=== PATIENT | male | born 1950 | race Caucasian/White ===

== ENCOUNTER 2018-07-31 09:53 | Day surgery (SDC) | payer OTHER ==
[2018-07-31] MEDS: PHENYLephrine 2.5% 15 ML OPH OPER (10:37)
[2018-07-31] MEDS: MOXIFLOXACIN 0.5% 3 ML OPH OPER (10:37)
[2018-07-31] MEDS: PROPARACAINE 0.5% 15 ML OPH OPER (10:37)
[2018-07-31] MEDS: CYCLOPENTOLATE 1% 2 ML OPH OPER (10:38)
[2018-07-31] MEDS: TROPICAMIDE 1% 3 ML OPH OPER (10:39)
[2018-07-31] MEDS ORDERED: [UNRECOGNIZED DRUG - OTHER] IRR (11:00)
[2018-07-31] MEDS ORDERED: GENTAMICIN IRR (11:00)
[2018-07-31] MEDS ORDERED: BALANCED SALT IRR (11:00)
[2018-07-31] MEDS ORDERED: NEOMYC/POLYMYX/DEXAM 3.5GM OPH OINT OPER (11:00)
[2018-07-31] MEDS ORDERED: TETRACAINE 0.5% 4 ML OPH OPER (11:00)
[2018-07-31] MEDS ORDERED: EPINEPHRINE IRR (11:00)
[2018-07-31] MEDS ORDERED: LIDOCAINE 1% (MPF) 10 ML INJ ×2 (11:33→12:06)
[2018-07-31] MEDS ORDERED: TETRACAINE 0.5% 4 ML OPH (11:34)
[2018-07-31] MEDS ORDERED: CARBACHOL 0.01% 1.5 ML OPH INJ (11:34)
[2018-07-31] MEDS ORDERED: LIDOCAINE 2% (SDV) 5 ML INJ ×2 (11:35)
[2018-07-31] MEDS ORDERED: MIDAZOLAM 1 MG/ML 2 ML INJ (11:47)
[2018-07-31] MEDS ORDERED: LIDOCAINE 1% (MPF) 30 ML INJ (11:50)
[2018-07-31] MEDS ORDERED: hydrALAzine 20 MG INJ IV (12:00)
[2018-07-31] MEDS ORDERED: LABETALOL HCL 20MG INJ IV (12:00)
[2018-07-31] MEDS ORDERED: ONDANSETRON 4 MG INJ IV (12:00)
[2018-07-31] MEDS ORDERED: METOCLOPRAMIDE 10 MG INJ IV (12:00)
== END 2018-07-31 14:39 | disposition home or self-care (01) ==
LOC: SDS 09:53
DX: H25.11 Age-related nuclear cataract, right eye (principal); I10 Essential (primary) hypertension; E78.5 Hyperlipidemia, unspecified; B20 Human immunodeficiency virus [HIV] disease
CPT/HCPCS: 66984